=== PATIENT | female | born 1960 | race Caucasian/White ===

== ENCOUNTER 2019-07-21 14:49 | Emergency (ER) | payer BC ==
[~2019-07-21] VITALS: Ht 162.6 cm; Wt 71.7 kg
--- NOTE | 2019-07-21 16:27 | NUR ---
PT HERE WITH C/O NOSEBLEED, STATES IT STARTED AT 1400 WHEN SHE BENT OVER AND HAS NOT STOPPED SINCE. PT STATES SHE SAW HER PRIMARY AND HE SENT HER HERE. PT HAS NOSE CLAMP IN PLACE. PT AAO X 4, NAD, ROOM AIR, CALL LIGHT WITHIN REACH. PT STATES HX HTN AND TAKES MEDS DAILY.
[2019-07-21] MEDS ORDERED: TRANEXAMIC ACID 100 MG/ML, 10ML ONE ×2 (17:07→17:30)
[2019-07-21] MEDS ORDERED: OXYMETAZOLINE NASAL SPRAY 0.05%,30ML ONE ×2 (17:07→17:30)
--- NOTE | 2019-07-21 17:08 | NUR ---
DR. WOOTEN AT BEDSIDE.
[2019-07-21] MEDS ORDERED: TRANEXAMIC ACID 100 MG/ML, 10ML TP ONE (17:30)
[2019-07-21] MEDS ORDERED: OXYMETAZOLINE NASAL SPRAY 0.05%, 15ML NAS ONE (17:30)
[2019-07-21 17:37] VITALS: BP 141/98
[2019-07-21 17:40] LABS: BASOPHILS # (AUTO) 0.07 x10^3/uL (0-0.1); BASOPHILS % (AUTO) 1 % (0-1); EOSINOPHILS # (AUTO) 0.13 x10^3/uL (0-0.4); EOSINOPHILS % (AUTO) 2 % (1-7); LYMPHOCYTES # (AUTO) 2.52 x10^3/uL (1-3.4); LYMPHOCYTES % (AUTO) 34 % (22-44); MD NO; MEAN CORPUSCULAR HEMOGLOBIN 31.1 pg (27.0-34.8); MEAN CORPUSCULAR HGB CONC 33.7 g/dL (32.4-35.8); MEAN CORPUSCULAR VOLUME 92.3 fL (80-100); MONOCYTES # (AUTO) 0.49 x10^3/uL (0.2-0.8); MONOCYTES % (AUTO) 7 % (2-9); NEUTROPHILS # (AUTO) 4.24 x10^3/uL (1.8-6.8); NEUTROPHILS % (AUTO) 57 % (42-75); PLATELET COUNT 263 x10^3/uL (130-400); RED BLOOD COUNT 4.21 x10^6/uL (3.82-5.3); RED CELL DISTRIBUTION WIDTH 13.7 % (9.6-15.2)
--- NOTE | 2019-07-21 17:55 | NUR ---
CLAMP REMOVED, PLAN FOR D/C.
--- NOTE | 2019-07-21 18:02 | NUR ---
Patient/Caregiver given discharge instructions and they have confirmed that they understand the instructions. Patient ambulatory with steady gait.
== END 2019-07-21 18:12 | disposition home or self-care (01) ==
LOC: ED 18:00
DX: R04.0 Epistaxis (principal); I10 Essential (primary) hypertension; Z87.891 Personal history of nicotine dependence
CPT/HCPCS: 36415; 85025; 99283